=== PATIENT | female | born 1930 | race Caucasian/White ===

== ENCOUNTER → 2017-06-02 | Outpatient (CLI) | payer OTHER, BC ==
[~2017-06-02] MED LIST: ADULT LOW DOSE81 MG PO; CALTRATE-600 W1 EACH PO; CELEBREX 200 M200 MG PO; CULTURELLE1 EACH PO; FISH OIL 1,0001 EAC5 PO; FOSAMAX 70 MG T70 MG PO; IBUPROFEN 200200 M1 PO; LOPRESSOR 50 MG50 M1 PO; MULTIVITAMINS PO; NEURONTIN 400M400 M2 PO; PRESERVISION T1 EACH PO; PRILOSEC40 MG PO; VALIUM5 MG PO; VITAMIN B-121000 MCG PO; VITAMIN D1000 UNI1 PO
== END ==
LOC: RAD 13:10
DX: R91.1 Solitary pulmonary nodule (principal); B39.9 Histoplasmosis, unspecified

== ENCOUNTER → 2017-06-16 | Outpatient (CLI) | payer OTHER, BC | LOC: MRI 15:08 | DX: S72.8X2A Other fracture of left femur, initial encounter for closed fracture (principal); S73.192A Other sprain of left hip, initial encounter; M43.8X6 Other specified deforming dorsopathies, lumbar region; X58.XXXA Exposure to other specified factors, initial encounter; Y93.89 Activity, other specified; Y92.89 Other specified places as the place of occurrence of the external cause; Y99.8 Other external cause status ==

== ENCOUNTER → 2017-08-02 | Outpatient (CLI) | payer OTHER, BC | LOC: CAT 10:51 | DX: R91.8 Other nonspecific abnormal finding of lung field (principal) ==

== ENCOUNTER → 2017-10-26 | Outpatient (CLI) | payer OTHER, BC | LOC: RAD 09:31 | DX: Z12.31 Encounter for screening mammogram for malignant neoplasm of breast (principal) ==

== ENCOUNTER → 2018-06-06 | Outpatient (CLI) | payer OTHER, BC | LOC: RAD 09:27 | DX: R91.8 Other nonspecific abnormal finding of lung field (principal); S22.000A Wedge compression fracture of unspecified thoracic vertebra, initial encounter for closed fracture; X58.XXXA Exposure to other specified factors, initial encounter; Y93.89 Activity, other specified; Y92.89 Other specified places as the place of occurrence of the external cause; Y99.8 Other external cause status ==

== ENCOUNTER → 2018-06-21 | Outpatient (CLI) | payer OTHER, BC | LOC: RAD 09:30 | DX: J45.40 Moderate persistent asthma, uncomplicated (principal); R91.8 Other nonspecific abnormal finding of lung field; Z88.1 Allergy status to other antibiotic agents ==

== ENCOUNTER → 2018-07-27 | Outpatient (CLI) | payer OTHER, BC | LOC: CAT 12:20 | DX: R91.8 Other nonspecific abnormal finding of lung field (principal); N28.1 Cyst of kidney, acquired; M41.85 Other forms of scoliosis, thoracolumbar region ==

== ENCOUNTER → 2018-11-30 | Outpatient (CLI) | payer OTHER, BC | LOC: RAD 02:46 | DX: Z12.31 Encounter for screening mammogram for malignant neoplasm of breast (principal) ==

== ENCOUNTER → 2019-01-18 | Outpatient (CLI) | payer OTHER, BC | LOC: CAT 09:38 | DX: R91.8 Other nonspecific abnormal finding of lung field (principal) ==

== ENCOUNTER → 2019-08-09 | Outpatient (CLI) | payer OTHER, BC | LOC: SJCVC 10:41 | DX: I44.0 Atrioventricular block, first degree (principal); I49.3 Ventricular premature depolarization; I48.0 Paroxysmal atrial fibrillation; D56.9 Thalassemia, unspecified; E78.5 Hyperlipidemia, unspecified; K21.9 Gastro-esophageal reflux disease without esophagitis; M81.0 Age-related osteoporosis without current pathological fracture; Z90.49 Acquired absence of other specified parts of digestive tract; Z79.01 Long term (current) use of anticoagulants; Z79.899 Other long term (current) drug therapy ==

== ENCOUNTER → 2020-01-11 | Outpatient (CLI) | payer OTHER, BC | LOC: RAD 09:57 | PROVIDERS: ATTEND Internal Medicine | DX: Z12.31 Encounter for screening mammogram for malignant neoplasm of breast (principal) ==

== ENCOUNTER → 2020-04-16 | Outpatient (CLI) | payer OTHER, MEDICARE | LOC: CAT 12:55 | PROVIDERS: ATTEND Internal Medicine | DX: J84.10 Pulmonary fibrosis, unspecified (principal); R91.8 Other nonspecific abnormal finding of lung field; I25.10 Atherosclerotic heart disease of native coronary artery without angina pectoris; M40.209 Unspecified kyphosis, site unspecified; M25.78 Osteophyte, vertebrae ==

== ENCOUNTER → 2020-04-30 | Outpatient (CLI) | payer OTHER, MEDICARE | LOC: SJCVCIMAG 09:02 | PROVIDERS: ATTEND Internal Medicine | DX: D17.71 Benign lipomatous neoplasm of kidney (principal); Z90.49 Acquired absence of other specified parts of digestive tract ==

== ENCOUNTER → 2020-04-30 | Outpatient (CLI) | payer OTHER, MEDICARE | LOC: CAT 10:31 | PROVIDERS: ATTEND Internal Medicine | DX: N28.1 Cyst of kidney, acquired (principal); R16.1 Splenomegaly, not elsewhere classified; J98.4 Other disorders of lung; N28.89 Other specified disorders of kidney and ureter; Z90.49 Acquired absence of other specified parts of digestive tract ==

== ENCOUNTER → 2020-05-07 | Outpatient (CLI) | payer OTHER, MEDICARE | LOC: SJCVC 13:14 | PROVIDERS: ATTEND Internal Medicine | DX: I48.0 Paroxysmal atrial fibrillation (principal); D56.9 Thalassemia, unspecified; E78.5 Hyperlipidemia, unspecified; Z79.01 Long term (current) use of anticoagulants; Z79.899 Other long term (current) drug therapy ==

== ENCOUNTER → 2020-06-04 | Outpatient (CLI) | payer OTHER, MEDICARE | LOC: SJCVCIMAG 11:08 | PROVIDERS: ATTEND Internal Medicine | DX: I65.23 Occlusion and stenosis of bilateral carotid arteries (principal); K21.9 Gastro-esophageal reflux disease without esophagitis; M81.0 Age-related osteoporosis without current pathological fracture; Z79.899 Other long term (current) drug therapy ==

== ENCOUNTER → 2020-06-26 | Outpatient (CLI) | payer OTHER, MEDICARE | LOC: SJCVCIMAG 08:32 | PROVIDERS: ATTEND Internal Medicine | DX: I08.3 Combined rheumatic disorders of mitral, aortic and tricuspid valves (principal); I44.0 Atrioventricular block, first degree; R94.31 Abnormal electrocardiogram [ECG] [EKG]; I48.0 Paroxysmal atrial fibrillation; E78.5 Hyperlipidemia, unspecified; D56.9 Thalassemia, unspecified; Z79.01 Long term (current) use of anticoagulants; Z79.899 Other long term (current) drug therapy; Z88.8 Allergy status to other drugs, medicaments and biological substances ==

== ENCOUNTER → 2020-06-26 | Outpatient (CLI) | payer OTHER, MEDICARE | LOC: LAB 11:30 | PROVIDERS: ATTEND Internal Medicine | DX: Z01.812 Encounter for preprocedural laboratory examination (principal); Z20.822 Contact with and (suspected) exposure to COVID-19 ==

== ENCOUNTER → 2020-06-27 | Outpatient (CLI) | payer OTHER, MEDICARE ==
--- NOTE | ~2020-06-27 | CATHLAB ---
[facility] [place] [address] [address] INVASIVE PROCEDURE REPORT Name: WALTER GOMES Room #: REG BETHEL GabrielTee#: [id number] Admission: 06/27/20 Attend Phys: Yovanny Wilson MD, Discharge: Date of : 32 Report #: [id number] THIS REPORT FOR: cc: Soren Jeffries MD, Bernard O. MD Lundgren,Yovanny Henley MD [facility] ~ MEDTR[employer] LINQ IMPLANTABLE LOOP RECORDER INDICATIONS: Near syncope, paroxysmal atrial fibrillation. DESCRIPTION OF PROCEDURE: The potential benefits and risks of the procedure were discussed at length with the patient who understood. Full written and informed consent was obtained. Her left anterior chest was prepped and draped in a sterile fashion. A 1% Xylocaine was used as local anesthetic. A 0.5 cm stab wound was made over the left fourth intercostal space. A Medtronic Reveal LINQ was inserted without difficulty serial number [id number]. A single bioabsorbable stitch was placed. She tolerated the procedure well. Thresholds were excellent. She was discharged home in stable condition. SUMMARY: Successful implantation of a Medtronic LINQ loop recorder for symptoms of near syncope in the setting of sick sinus syndrome and paroxysmal atrial fibrillation. By: [id number] Yovanny Wilson MD, FACC /nt
[2020-06-27 11:30] VITALS: BP 138/64
== END | disposition home or self-care (01) ==
LOC: CATH 08:19
PROVIDERS: ATTEND Internal Medicine
DX: R55 Syncope and collapse (principal); I48.0 Paroxysmal atrial fibrillation; I49.5 Sick sinus syndrome; Z79.899 Other long term (current) drug therapy; Z88.8 Allergy status to other drugs, medicaments and biological substances; Z79.01 Long term (current) use of anticoagulants

== ENCOUNTER 2020-07-01 07:27 | Observation (INO) | payer OTHER, MEDICARE ==
--- NOTE | ~2020-07-01 | P ---
[facility] [place] [address] [place] [address] PROCEDURE REPORT Name: WALTER GOMES Room #: 202-P [facility] Timbo Farah#: [id number] Admission: 07/01/20 Attend Phys: Jaya Howard MD Discharge: Date of : 31 Report #: [id number] THIS REPORT FOR: cc: Soren Jeffries MD, Bernard O. MD Couchonnal, Luis F. MD ~ DATE OF SERVICE: 07/01/2020 PROCEDURE: Pacemaker implantation PREOPERATIVE DIAGNOSES: 1. Sick sinus syndrome. 2. Sinus arrest. 3. Paroxysmal atrial fibrillation. 4. Tachycardia-bradycardia. INDICATIONS FOR PROCEDURE: The patient is an 89-year-old female with a history of paroxysmal atrial fibrillation. She has been having worsening episodes, recently had up titration of her flecainide and beta blockers. She started having presyncopal symptoms, had an implantable loop recorder showing 3-5 second pauses. She is here for a dual chamber pacemaker implantation. ANESTHESIA: The patient underwent MAC anesthesia with no anesthesia related complications. DESCRIPTION OF PROCEDURE: The patient underwent informed consent. We discussed the details of the procedure including the risks, which include but not limited to bleeding, infection, vascular damage, cardiac perforation and pneumothorax. She understood these risks and is willing to proceed. The patient was brought to EP laboratory in a fasting and sedated state, prepped and draped in a sterile fashion, received IV antibiotics prior to initiation of the procedure, underwent a venogram showing patency of the left axillary vein. Sheaths were positioned using the modified Seldinger technique. Next, under fluoroscopy, leads were positioned in the right ventricular mid septum and the right atrial appendage both with adequate pacing and sensing thresholds. The leads were sutured to the prepectoral fascia using Ethibond. The pocket was irrigated with vancomycin. Device connected. Tug test performed and the device was placed in the pocket. Pocket was then irrigated with vancomycin and closed in 2 layers and surgical glue was placed to outer skin layer. Next, the implantable loop recorder was removed. I removed the prior suture and was able to push the device out. A single layer of suture was performed and surgical glue was placed on this as well. The patient awoke neurologically and hemodynamically intact. No complications and no significant bleeding. [facility] [address] [place] [address] PROCEDURE REPORT Name: WALTER GOMES Room #: 202-P [facility] Timbo Farah#: [id number] Admission: 07/01/20 Attend Phys: Jaya Howard MD Discharge: Date of : 31 Report #: [id number] The implanted pacemaker was a Medtronic model number [id number], serial #[id number]. Atrial lead was a 4076, 45 cm, serial #[id number]. RV lead was a 4076, 52 cm, serial #[id number]. The atrial lead demonstrated a P-wave of 1.25 millivolts, pacing impedance of 494 ohms and a pacing threshold of 1 volt at 0.4 milliseconds. RV lead demonstrated R waves of 6.1 millivolts, pacing impedance 779 ohms, pacing threshold 1.25 volts at 0.4 milliseconds. The device was programmed to DDDR 60-130 mode. CONCLUSIONS: 1. Successful dual-chamber pacemaker implantation. 2. Satisfactory atrial and ventricular pacing and sensing thresholds. RECOMMENDATIONS: 1. We will hold off on resuming anticoagulation until seen in the office. 2. Increase the flecainide to 100 b.i.d. and continue the metoprolol tartrate 50 mg twice a day. By: [id number] Jaya Howard MD /nt
[2020-07-01] MEDS ORDERED: BREO ELLIPTA 11 EACH INH (09:31)
[2020-07-01] MEDS ORDERED: ZINC SULFATE220 MG PO (09:32)
[2020-07-01] MEDS ORDERED: FLECAINIDE ACE150 MG PO ×2 (09:32→19:35)
[2020-07-01] MEDS ORDERED: TOPROL XL25 MG PO (09:32)
[2020-07-01] MEDS ORDERED: PROTONIX40 M4 PO (09:33)
[2020-07-01] MEDS ORDERED: PROLIA60 MG/1 ML SUBQ (09:34)
[2020-07-01] MEDS ORDERED: XARELTO15 MG PO (09:34)
[2020-07-01 09:50] LABS: ABSOLUTE NEUTROPHILS 7.8 thou/uL (1.4-8.2); BASOPHILS 0.6 % (0.0-2.0); EOSINOPHILS 1.2 % (0.0-3.0); HEMATOCRIT 36.2 % (37.0-47.0); HEMOGLOBIN 10.8 gm/dL (12.0-15.0); LYMPHOCYTES 22.4 % (24.0-44.0); MCH 19.6 pg (26.0-34.0); MCHC 29.8 g/dL (28.0-37.0); MCV 65.8 fL (80.0-100.0); MONOCYTES 10.1 % (1.0-8.0); POLYS 65.7 % (36.0-66.0); RBC 5.51 mil/uL (4.20-5.00); RDW 18.7 % (10.5-14.5); WBC 11.9 thou/uL (4.0-11.0)
[2020-07-01 09:58] LABS: CALCIUM 9.6 mg/dL (8.5-10.1); CREATININE 0.6 mg/dL (0.6-1.0); POTASSIUM 3.7 mmol/L (3.5-5.1)
[2020-07-01 10:03] LABS: APTT 26.7 Seconds (24.5-32.8); INR 1.1; PROTIME 10.9 Seconds (9.3-11.4)
[2020-07-01 10:04] LABS: ALBUMIN 4.3 g/dL (3.4-5.0); TOTAL BILIRUBIN 3.6 mg/dL (0.2-1.0); TOTAL PROTEIN 7.8 g/dL (6.4-8.2)
[2020-07-01 15:12] LABS: TARGET CELLS FEW
[2020-07-01 15:13] LABS: HYPOCHROMASIA 3+; OVALOCYTES 1+; TEARDROPS 2+
[2020-07-01 15:14] LABS: MICROCYTES 3+; PLATELET COUNT 259 thou/uL (150-400)
[2020-07-01 15:45] VITALS: BP 134/67
[2020-07-01 16:00] VITALS: BP 126/73
[2020-07-01 16:15] VITALS: BP 140/74
[2020-07-01 16:30] VITALS: BP 142/73
[2020-07-01 17:00] VITALS: BP 129/67
[2020-07-01 19:28] VITALS: BP 131/78
--- NOTE | 2020-07-01 19:42 | NUR ---
PT. ARRIVED AT FLOOR AROUND 1545; PT. AOX4; NO C/O PAIN; SR ON THE MONITOR; EDUCATED ABOUT BED REST AND FALL PRECAUTIONS; ST. UNDERSTANDING; EDUCATED ABOUT MANTAINING L. SIDE ARM BELOW SHOULDER; ST. UNDERSTANDING; ADMISSION PERFORMED; UP TO BED SIDE COMMODE; MANTAIN HEAD OF THE BED AT 45 DEGRESS; MEDICATION GIVEN; ASSESSMENT CHARGED; FOLLOWING POC; PASSED ON REPORT;
--- NOTE | 2020-07-02 03:42 | NUR ---
Assumed pt care at 1900. Pt is alert and oriented. No sign of distress noted in pt. Pt is laying in bed, resting comfortably. Left arm immobilizer in place. Fall precaution in place. Assessment completed and documented. Scheduled meds administered to pt. Tolerated PO intake. Continue to monitor. No acute events overnight. No futher needs at this time.
[2020-07-02 04:20] VITALS: BP 124/62
[2020-07-02] MEDS ORDERED: XARELTO15 MG PO (07:20)
[2020-07-02] MEDS ORDERED: TAMBOCOR 100 M100 M1 PO (07:47)
[2020-07-02] MEDS ORDERED: ASA81BEC PO (07:47)
[2020-07-02 08:45] VITALS: BP 124/62
== END 2020-07-02 09:15 | disposition home or self-care (01) ==
LOC: CATH 07:27 → 2N 16:22
PROVIDERS: ADMIT Internal Medicine Cardiovascular Disease; ATTEND Internal Medicine Cardiovascular Disease
DX: I49.5 Sick sinus syndrome (principal); I45.5 Other specified heart block; I48.91 Unspecified atrial fibrillation; Z20.828 Contact with and (suspected) exposure to other viral communicable diseases; Z79.899 Other long term (current) drug therapy; Z88.1 Allergy status to other antibiotic agents; Z88.8 Allergy status to other drugs, medicaments and biological substances
CPT/HCPCS: 62110; 62900; 70005

== ENCOUNTER → 2020-08-01 | Outpatient (CLI) | payer OTHER, MEDICARE ==
[~2020-08-01] MED LIST changes: +ASA81BEC PO; +BREO ELLIPTA 11 EACH INH; +FLECAINIDE ACE150 MG PO; +PROLIA60 MG/1 ML SUBQ; +PROTONIX40 M4 PO; +TAMBOCOR 100 M100 M1 PO; +TOPROL XL25 MG PO; +XARELTO15 MG PO; +ZINC SULFATE220 MG PO
== END ==
LOC: SJCVC 11:08
PROVIDERS: ATTEND Internal Medicine
DX: R94.31 Abnormal electrocardiogram [ECG] [EKG] (principal); I44.7 Left bundle-branch block, unspecified; I48.0 Paroxysmal atrial fibrillation; D56.9 Thalassemia, unspecified; E78.5 Hyperlipidemia, unspecified; K21.9 Gastro-esophageal reflux disease without esophagitis; M81.0 Age-related osteoporosis without current pathological fracture; Z90.49 Acquired absence of other specified parts of digestive tract; Z98.890 Other specified postprocedural states; Z88.8 Allergy status to other drugs, medicaments and biological substances; Z79.01 Long term (current) use of anticoagulants; Z79.899 Other long term (current) drug therapy

== ENCOUNTER → 2020-09-16 | Outpatient (CLI) | payer OTHER, MEDICARE | LOC: SJCVC 11:23 | PROVIDERS: ATTEND Internal Medicine | DX: R94.31 Abnormal electrocardiogram [ECG] [EKG] (principal); I44.7 Left bundle-branch block, unspecified; I48.0 Paroxysmal atrial fibrillation; E78.5 Hyperlipidemia, unspecified; D56.9 Thalassemia, unspecified; K21.9 Gastro-esophageal reflux disease without esophagitis; M81.0 Age-related osteoporosis without current pathological fracture; Z95.0 Presence of cardiac pacemaker; Z90.49 Acquired absence of other specified parts of digestive tract; Z98.890 Other specified postprocedural states; Z88.8 Allergy status to other drugs, medicaments and biological substances; Z79.01 Long term (current) use of anticoagulants; Z79.899 Other long term (current) drug therapy ==

== ENCOUNTER → 2021-01-01 | Outpatient (CLI) | payer OTHER, MEDICARE | LOC: NUC 11-28 10:40 | PROVIDERS: ATTEND Neuromusculoskeletal Medicine & OMM | DX: M81.0 Age-related osteoporosis without current pathological fracture (principal) ==

== ENCOUNTER → 2021-03-10 | Outpatient (CLI) | payer OTHER, MEDICARE | LOC: SJCVC 11:00 | PROVIDERS: ATTEND Internal Medicine | DX: R94.31 Abnormal electrocardiogram [ECG] [EKG] (principal); K21.9 Gastro-esophageal reflux disease without esophagitis; I48.0 Paroxysmal atrial fibrillation; D56.9 Thalassemia, unspecified; E78.5 Hyperlipidemia, unspecified; M81.0 Age-related osteoporosis without current pathological fracture; I21.9 Acute myocardial infarction, unspecified; Z79.01 Long term (current) use of anticoagulants; Z79.899 Other long term (current) drug therapy; Z88.8 Allergy status to other drugs, medicaments and biological substances ==

== ENCOUNTER → 2021-07-10 | Outpatient (CLI) | payer OTHER, MEDICARE | LOC: SJCVCIMAG 09:10 | PROVIDERS: ATTEND Internal Medicine | DX: I73.9 Peripheral vascular disease, unspecified (principal); M79.605 Pain in left leg; M79.604 Pain in right leg; K21.9 Gastro-esophageal reflux disease without esophagitis; I10 Essential (primary) hypertension; Z88.8 Allergy status to other drugs, medicaments and biological substances; Z79.899 Other long term (current) drug therapy ==